=== PATIENT | male | born 1975 | race African-American/Black ===

== ENCOUNTER 2020-11-19 08:44 | Emergency (ER) | payer OTHER | END 2020-11-19 10:05 | disposition home or self-care (01) | LOC: ED 08:44 | DX: B35.6 Tinea cruris (principal); B37.2 Candidiasis of skin and nail; K62.89 Other specified diseases of anus and rectum | CPT/HCPCS: 96372; 99283; J1885 ==

== ENCOUNTER 2022-10-12 13:29 | Emergency (ER) | payer OTHER ==
[~2022-10-12] VITALS: Ht 170.2 cm; Wt 99.8 kg
[2022-10-12 13:46] VITALS: BP 143/101; TEMP 97.3
== END 2022-10-12 15:07 | disposition home or self-care (01) ==
LOC: ED 13:29
PROC: 2W3MX1Z Immobilization of Left Lower Extremity using Splint (ICD-10-PCS; principal; 2022-10-12)
DX: S92.405A Nondisplaced unspecified fracture of left great toe, initial encounter for closed fracture (principal); W20.8XXA Other cause of strike by thrown, projected or falling object, initial encounter; F17.210 Nicotine dependence, cigarettes, uncomplicated
CPT/HCPCS: 99283